=== PATIENT | male | born 1940 | race Caucasian/White ===

== ENCOUNTER 2018-04-02 13:41 | Observation (INO) | payer OTHER ==
[2018-04-02] VITALS (7 sets, daily range): BP systolic 130–167; BP diastolic 63–82; PULSE 50–64; RESP 18–20; TEMP 96.6–97.7; O2SAT 94–99
[~2018-04-02] VITALS: Ht 168.9 cm; Wt 75.0 kg
[2018-04-02 14:01] LABS: AUTOMATED NEUTROPHIL # 4.4 TH/MM3 (1.8-7.7); BASOPHIL % 0.4 % (0.0-2.0); EOSINOPHIL # 0.2 TH/MM3 (0-0.4); EOSINOPHIL % 2.6 % (0.0-4.0); HEMATOCRIT 40.3 % (39.0-51.0); HEMOGLOBIN 13.8 GM/DL (13.0-17.0); LYMPH % 40.2 % (9.0-44.0); LYMPHOCYTE # 3.9 TH/MM3 (1.0-4.8); MEAN CELL VOLUME 88.5 FL (80.0-100.0); MEAN CORPUSCULAR HEMOGLOBIN 30.4 PG (27.0-34.0); MEAN CORPUSCULAR HGB CONC 34.3 % (32.0-36.0); MONO % 11.3 % (0.0-8.0); MONOCYTE # 1.1 TH/MM3 (0-0.9); NEUT % 45.5 % (16.0-70.0); PLATELET COUNT 201 TH/MM3 (150-450); RED BLOOD COUNT 4.55 MIL/MM3 (4.50-5.90); RED CELL DISTRIBUTION WIDTH 13.6 % (11.6-17.2); WHITE BLOOD COUNT 9.6 TH/MM3 (4.0-11.0)
[2018-04-02 14:16] LABS: INTERNATIONAL NORMALIZED RATIO 1.1 RATIO; PROTHROMBIN TIME - PATIENT 10.7 SEC (9.8-11.6)
[2018-04-02 14:20] LABS: ALBUMIN 4.1 GM/DL (3.4-5.0); ALT (GPT) 30 U/L (12-78); AST (GOT) 23 U/L (15-37); BICARBONATE 22.5 MEQ/L (21.0-32.0); BLOOD UREA NITROGEN 41 MG/DL (7-18); CALCIUM 8.9 MG/DL (8.5-10.1); CHLORIDE 109 MEQ/L (98-107); CREATININE 1.92 MG/DL (0.60-1.30); GLOMERULAR FILTRATION RATE 34 ML/MIN (>89); GLUCOSE,RANDOM 101 MG/DL (74-106); MAGNESIUM 2.3 MG/DL (1.5-2.5); SODIUM (NA) 141 MEQ/L (136-145)
[2018-04-02 14:24] LABS: ALKALINE PHOSPHATASE 106 U/L (45-117); TOTAL BILIRUBIN ADULT 0.5 MG/DL (0.2-1.0); TOTAL PROTEIN 7.6 GM/DL (6.4-8.2); TROPONIN I LESS THAN 0.02 NG/ML (0.02-0.05)
--- NOTE | 2018-04-02 14:39 | PD ---
HPI Chief Complaint: Cardiac Complaint Time Seen by Provider: 13:44 Travel History International Travel<30 days: No Contact w/Intl Traveler<30days: No Traveled to known affect area: No History of Present Illness HPI 78-year-old male had a syncopal event and his family called an ambulance to come and get him. When they arrived on scene he had no complaints other than generalized weakness. While they are preparing to come up to the monitor he had another syncopal event but they do not know what his rhythm was at the time. They state in route they thought that he was in atrial fibrillation with his rhythm strip appears to be sinus rhythm. Patient has no active chest pain or shortness of breath at this time. Patient does not recall syncopal event and history is limited. PFSH Past Medical History Atrial Fibrillation: Yes Cardiac Catheterization: Yes (STENTS) Cardiovascular Problems: Yes Diabetes: Yes Patient Takes Glucophage: Yes Hypertension: Yes Past Surgical History Other Surgery: Yes (STENTS IN LEG) Social History Alcohol Use: No Tobacco Use: No Substance Use: No Allergies-Medications (Allergen,Severity, Reaction): Coded Allergies: iodine (Verified Allergy, Unknown, 04/02/18) Review of Systems Except as stated in HPI: all other systems reviewed are Neg Physical Exam Narrative GENERAL: 78 y/o male in no apparent distress SKIN: Focused skin assessment warm/dry. HEAD: Atraumatic. Normocephalic. EYES: Pupils equal and round. No scleral icterus. No injection or drainage. ENT: No nasal bleeding or discharge. Mucous membranes pink and moist. NECK: Trachea midline. CARDIOVASCULAR: Regular rate and rhythm. RESPIRATORY: No accessory muscle use. Clear to auscultation. Breath sounds equal bilaterally. GASTROINTESTINAL: Abdomen soft, non-tender, nondistended. MUSCULOSKELETAL: No obvious deformities. No clubbing. No cyanosis. NEUROLOGICAL: Awake and alert. No obvious cranial nerve deficits. Motor grossly within normal limits. Normal speech. PSYCHIATRIC: Appropriate mood and affect; insight and judgment normal. Data Data Last Documented VS Vital Signs Date Time Temp Pulse Resp B/P (MAP) Pulse Ox O2 Delivery O2 Flow Rate FiO2 04/02/18 14:32 60 20 142/63 (89) 94 Nasal Cannula 2.00 04/02/18 13:42 97.7 Orders Orders Electrocardiogram (04/02/18 13:45) Complete Blood Count With Diff (04/02/18 13:45) Comprehensive Metabolic Panel (04/02/18 13:45) Magnesium (Mg) (04/02/18 13:45) B-Type Natriuretic Peptide (04/02/18 13:45) Ckmb (Isoenzyme) Profile (04/02/18 13:45) Troponin I (04/02/18 13:45) Act Partial Throm Time (Ptt) (04/02/18 13:45) Prothrombin Time / Inr (Pt) (04/02/18 13:45) Chest, Single Ap (04/02/18 13:45) Ecg Monitoring (04/02/18 13:45) Iv Access Insert/Monitor (04/02/18 13:45) Oximetry (04/02/18 13:45) Sodium Chlorid 0.9% 500 Ml Inj (Ns 500 M (04/02/18 14:45) Admit Order (Ed Use Only) (04/02/18 15:17) Place In Observation (04/02/18 ) Vital Signs (Adult) Q4H (04/02/18 15:16) Activity Oob Ad Nhung (04/02/18 15:16) Utilization Supervisor / Telemetry SONI.Q8H (04/02/18 15:16) Diet Heart Healthy (04/02/18 Dinner) Sodium Chloride 0.9% Flush (Ns Flush) (04/02/18 15:30) Sodium Chloride 0.9% Flush (Ns Flush) (04/02/18 21:00) Basic Metabolic Panel (Bmp) (04/03/18 06:00) Echo 2d Comp With Doppler (04/02/18 ) Us Carotid Arteries Comp Bilat (04/02/18 ) Orthostatic Blood Pressure (04/02/18 15:16) Troponin I (04/02/18 19:00) Labs Laboratory Tests Test 04/02/18 13:50 White Blood Count 9.6 TH/MM3 Red Blood Count 4.55 MIL/MM3 Hemoglobin 13.8 GM/DL Hematocrit 40.3 % Mean Corpuscular Volume 88.5 FL Mean Corpuscular Hemoglobin 30.4 PG Mean Corpuscular Hemoglobin Concent 34.3 % Red Cell Distribution Width 13.6 % Platelet Count 201 TH/MM3 Mean Platelet Volume 9.0 FL Neutrophils (%) (Auto) 45.5 % Lymphocytes (%) (Auto) 40.2 % Monocytes (%) (Auto) 11.3 % Eosinophils (%) (Auto) 2.6 % Basophils (%) (Auto) 0.4 % Neutrophils # (Auto) 4.4 TH/MM3 Lymphocytes # (Auto) 3.9 TH/MM3 Monocytes # (Auto) 1.1 TH/MM3 Eosinophils # (Auto) 0.2 TH/MM3 Basophils # (Auto) 0.0 TH/MM3 CBC Comment DIFF FINAL Differential Comment Prothrombin Time 10.7 SEC Prothromb Time International Ratio 1.1 RATIO Activated Partial Thromboplast Time 21.0 SEC Blood Urea Nitrogen 41 MG/DL Creatinine 1.92 MG/DL Random Glucose 101 MG/DL Total Protein 7.6 GM/DL Albumin 4.1 GM/DL Calcium Level 8.9 MG/DL Magnesium Level 2.3 MG/DL Alkaline Phosphatase 106 U/L Aspartate Amino Transf (AST/SGOT) 23 U/L Alanine Aminotransferase (ALT/SGPT) 30 U/L Total Bilirubin 0.5 MG/DL Sodium Level 141 MEQ/L Potassium Level 4.0 MEQ/L Chloride Level 109 MEQ/L Carbon Dioxide Level 22.5 MEQ/L Anion Gap 10 MEQ/L Estimat Glomerular Filtration Rate 34 ML/MIN Total Creatine Kinase 60 U/L Troponin I LESS THAN 0.02 NG/ML B-Type Natriuretic Peptide 143 PG/ML MDM Medical Decision Making Medical Screen Exam Complete: Yes Emergency Medical Condition: Yes Medical Record Reviewed: Yes (pmh confirmed) Interpretation(s) CBC & BMP Diagram 04/02/18 13:50 Total Protein 7.6, Albumin 4.1, Calcium Level 8.9, Magnesium Level 2.3, Alkaline Phosphatase 106, Aspartate Amino Transf (AST/SGOT) 23, Alanine Aminotransferase (ALT/SGPT) 30, Total Bilirubin 0.5 Last 24 hours Impressions Chest X-Ray 04/02/18 1345 Signed Impressions: CONCLUSION: No acute cardiopulmonary abnormality is identified. Differential Diagnosis Anemia, cardiac, electrolyte Narrative Course We will check blood work, imaging and reevaluate Labs with renal insufficiency without prior for comparison. Given significant past medical history and setting of syncope will admit for observation for further care Physician Communication Physician Communication dr parada agrees not stemi dr espana agrees to admit Diagnosis Primary Impression: Syncope Qualified Codes: R55 - Syncope and collapse Additional Impression: Renal insufficiency Admitting Information Admitting Physician Requests: Observation Hird,Ludivina May MD Apr 02, 2018 14:39
--- NOTE | 2018-04-02 14:42 | RADRPT ---
EXAM DATE: 04/02/2018 2:25 PM EDT AGE/SEX: 78 years / Male INDICATIONS: Short of breath. CLINICAL DATA: This is the patient's initial encounter. Patient reports that signs and symptoms have been present for 1 day and indicates a pain score of 0/10. MEDICAL/SURGICAL HISTORY: None. None. COMPARISON: [facility], XR CHEST PA AND LAT, 08/20/2015. . FINDINGS: Portable AP views of the chest demonstrate a normal-sized cardiac silhouette. EKG lines overlie the p atient. Linear opacity overlying the right lower lung zone is stable and likely represents a bronchov ascular structure. No effusion, consolidation, or pneumothorax is visualized. Bones and soft tissues demonstrate no acute finding. CONCLUSION: No acute cardiopulmonary abnormality is identified. Electronically signed by: Tony Mathews MD 04/02/2018 2:41 PM EDT
[2018-04-02] MEDS ORDERED: SODIUM CHLORID 0.9% 500 ML INJ 500 ML IV ONE (14:45)
[2018-04-02] MEDS ORDERED: IODIXANOL 320 MG/ML 10 ML VIAL (for Rad CT) IVCONTRAST ONE (15:20)
[2018-04-02] MEDS ORDERED: SODIUM CHLORIDE 0.9% FLUSH 10 ML FLUSH IV FLUSH PRN (15:30)
--- NOTE | 2018-04-02 16:06 | HHI.HP ---
[facility] [place] [facility] Primary Care Physician Unknown Admission Diagnosis syncope Diagnoses: Chief Complaint: I do not know what happened Travel History International Travel<30 Days: No Contact w/Intl Traveler <30 Da: No Traveled to Known Affected Are: No History of Present Illness 78-year-old white male with a history of coronary artery disease, peripheral vascular disease, hypertension, diabetes mellitus type 2, chronic kidney disease stage III, valvular heart disease is down in this area visiting from [place] when he returned walking on the beach and felt extremely hot sitting down in a chair and had a witnessed passing out spell by his family members. They described the syncope episode lasting about a minute and period of confusion afterwards which lasted about 10 minutes. He had a similar shortly afterwards repeat syncope episode blood sugar at that time per family member was 97. And therefore EVAC was called. He did eat breakfast and drank water and was pretty well hydrated this morning. He states that this has never happened previously. He does see a scrap wheeler and states that he is due for office visit in June and a repeat echo in May. He states that he does have a valvular heart disease and thinks it may be due to his aortic valve. His at bedside states that his physician did state that he may need future open heart surgery for the valve repair. Review of Systems Constitutional: COMPLAINS OF: Diaphoretic episodes, DENIES: Fatigue, Fever, Chills, Dizziness, Change in appetite Endocrine: DENIES: Heat/cold intolerance Eyes: DENIES: Blurred vision, Eye pain, Vision loss Ears, nose, mouth, throat: DENIES: Hearing loss, Nasal discharge, Throat pain, Ear Pain, Sinus Pain Respiratory: DENIES: Cough, Shortness of breath Cardiovascular: DENIES: Chest pain, Palpitations, Dyspnea on Exertion, Lower Extremity Edema Gastrointestinal: DENIES: Abdominal pain, Black stools, Bloody stools, Constipation, Diarrhea, Nausea, Vomiting Musculoskeletal: DENIES: Joint pain, Muscle aches, Stiffness Integumentary: DENIES: Rash Hematologic/lymphatic: DENIES: Bruising, Lymphadenopathy Immunologic/allergic: DENIES: Eczema Neurologic: DENIES: Headache, Localized weakness, Paresthesias Psychiatric: DENIES: Anxiety, Depression, Suicidal Ideation Past Family Social History Past Medical History CAD PVD Hyperlipidemia Diabetes mellitus type 2 Valvular heart disease Chronic kidney disease stage III Hypertension Past Surgical History Stent placement heart and bilateral lower extremity Reported Medications Atorvastatin 80 mg p.o. nightly Metoprolol 25 mg p.o. nightly Plavix 75 mg p.o. daily Amlodipine 10 mg p.o. daily Glipizide 10 mg p.o. daily Allergies: Coded Allergies: iodine (Verified Allergy, Unknown, Swelling, 04/04/18) PATIENT STATES THAT FACE WAS SWOLLEN BUT NO DIFFICULTY BREATHING. IS ABLE TO EAT SHELLFISH WITHOUT PROBLEM. 04/04/18 DJP Family History Grandmother had heart disease Social History Does not smoke cigarettes or drink alcohol Physical Exam Vital Signs Vital Signs Date Time Temp Pulse Resp B/P (MAP) Pulse Ox O2 Delivery O2 Flow Rate FiO2 04/02/18 14:32 60 20 142/63 (89) 94 Nasal Cannula 2.00 04/02/18 13:49 59 20 96 Room Air 04/02/18 13:49 99 Room Air 04/02/18 13:42 97.7 64 20 159/67 (97) 95 Physical Exam GENERAL: This is a well-nourished, well-developed patient, in no apparent distress. SKIN: No rashes, ecchymoses or lesions. Cool and dry. HEAD: Atraumatic. Normocephalic. No temporal or scalp tenderness. EYES: Pupils equal round and reactive. Extraocular motions intact. No scleral icterus. No injection or drainage. ENT: Nose without bleeding, purulent drainage or septal hematoma. NECK: Trachea midline. No JVD or lymphadenopathy. Supple, nontender, no meningeal signs. CARDIOVASCULAR: Regular rate and rhythm with 2 out of 6 systolic ejection murmur RESPIRATORY: Clear to auscultation. Breath sounds equal bilaterally. No wheezes , rales, or rhonchi. GASTROINTESTINAL: Abdomen soft, non-tender, nondistended. No hepato-splenomegaly , or palpable masses. No guarding. Normoactive bowel sounds MUSCULOSKELETAL: Extremities without clubbing, cyanosis, or edema. NEUROLOGICAL: Awake and alert to person place time and situation. Cranial nerves II through XII intact. Motor and sensory grossly within normal limits. Five out of 5 muscle strength in all muscle groups. Normal speech. Laboratory Laboratory Tests Test 04/02/18 13:50 White Blood Count 9.6 Red Blood Count 4.55 Hemoglobin 13.8 Hematocrit 40.3 Mean Corpuscular Volume 88.5 Mean Corpuscular Hemoglobin 30.4 Mean Corpuscular Hemoglobin Concent 34.3 Red Cell Distribution Width 13.6 Platelet Count 201 Mean Platelet Volume 9.0 Neutrophils (%) (Auto) 45.5 Lymphocytes (%) (Auto) 40.2 Monocytes (%) (Auto) 11.3 Eosinophils (%) (Auto) 2.6 Basophils (%) (Auto) 0.4 Neutrophils # (Auto) 4.4 Lymphocytes # (Auto) 3.9 Monocytes # (Auto) 1.1 Eosinophils # (Auto) 0.2 Basophils # (Auto) 0.0 CBC Comment DIFF FINAL Differential Comment Prothrombin Time 10.7 Prothromb Time International Ratio 1.1 Activated Partial Thromboplast Time 21.0 Blood Urea Nitrogen 41 Creatinine 1.92 Random Glucose 101 Total Protein 7.6 Albumin 4.1 Calcium Level 8.9 Magnesium Level 2.3 Alkaline Phosphatase 106 Aspartate Amino Transf (AST/SGOT) 23 Alanine Aminotransferase (ALT/SGPT) 30 Total Bilirubin 0.5 Sodium Level 141 Potassium Level 4.0 Chloride Level 109 Carbon Dioxide Level 22.5 Anion Gap 10 Estimat Glomerular Filtration Rate 34 Total Creatine Kinase 60 Troponin I LESS THAN 0.02 B-Type Natriuretic Peptide 143 Result Diagram: 04/02/18 1350 04/02/18 1350 Imaging Last Impressions Chest X-Ray 04/02/18 1345 Signed Impressions: CONCLUSION: No acute cardiopulmonary abnormality is identified. Caprini VTE Risk Assessment Caprini VTE Risk Assessment: Mod/High Risk (score >= 2) Caprini Risk Assessment Model Point Value = 1 Point Value = 2 Point Value = 3 Point Value = 5 Age 41-60 Minor surgery BMI > 25 kg/m2 Swollen legs Varicose veins or History of unexplained or recurrent spontaneous Oral contraceptives or hormone replacement Sepsis (< 1 month) Serious lung disease, including pneumonia (< 1 month) Abnormal pulmonary function Acute myocardial infarction Congestive heart failure (< 1 month) History of inflammatory bowel disease Medical patient at bed rest Age 61-74 Arthroscopic surgery Major open surgery (> 45 min) Laparoscopic surgery (> 45 min) Malignancy Confined to bed (> 72 hours) Immobilizing plaster cast Central venous access Age >= 75 History of VTE Family history of VTE Factor V Leiden Prothrombin [id number] Lupus anticoagulant Anticardiolipin antibodies Elevated serum homocysteine Heparin-induced thrombocytopenia Other congenital or acquired thrombophilia Stroke (< 1 month) Elective arthroplasty Hip, pelvis, or leg fracture Acute spinal cord injury (< 1 month) Prophylaxis Regimen Total Risk Factor Score Risk Level Prophylaxis Regimen 0-1 Low Early ambulation 2 Moderate Order ONE of the following: *Sequential Compression Device (SCD) *Heparin 5000 units SQ BID 3-4 Higher Order ONE of the following medications: *Heparin 5000 units SQ TID *Enoxaparin/Lovenox 40 mg SQ daily (WT < 150 kg, CrCl > 30 mL/min) *Enoxaparin/Lovenox 30 mg SQ daily (WT < 150 kg, CrCl > 10-29 mL/min) *Enoxaparin/Lovenox 30 mg SQ BID (WT < 150 kg, CrCl > 30 mL/min) AND/OR *Sequential Compression Device (SCD) 5 or more Highest Order ONE of the following medications: *Heparin 5000 units SQ TID (Preferred with Epidurals) *Enoxaparin/Lovenox 40 mg SQ daily (WT < 150 kg, CrCl > 30 mL/min) *Enoxaparin/Lovenox 30 mg SQ daily (WT < 150 kg, CrCl > 10-29 mL/min) *Enoxaparin/Lovenox 30 mg SQ BID (WT < 150 kg, CrCl > 30 mL/min) AND *Sequential Compression Device (SCD) Assessment and Plan Problem List: (1) Syncope ICD Code: R55 - Syncope and collapse Status: Acute (2) Valvular heart disease ICD Code: I38 - Endocarditis, valve unspecified Status: Chronic (3) Diabetes mellitus type 2, controlled ICD Code: E11.9 - Type 2 diabetes mellitus without complications Status: Chronic (4) CKD (chronic kidney disease), stage III ICD Code: N18.3 - Chronic kidney disease, stage 3 (moderate) Status: Chronic Assessment and Plan 78-year-old white male with a history of coronary disease, valvular heart disease here vacationing from [place] presents with 1. Syncope -place patient observation. Patient does have history of valvular heart disease and suspect aortic stenosis - obtain 2D echo for further evaluation and place on telemetry to rule out any underlying arrhythmia. Check orthostatic blood pressure. We will also obtain a carotid ultrasound due to patient's history of peripheral vascular disease and coronary artery disease. Patient states that he would prefer to follow-up with his own scrap wheeler in [place] and declined a cardiology consultation here. 2. Coronary artery disease resume Plavix 3. Hypertension, chronic essential resume home amlodipine 4. Chronic kidney disease stage III -avoid nephrotoxins 5. Diabetes mellitus type 2 - monitor blood sugars, initiate sliding scale scale. Resume glipizide 6. DVT prophylaxis-heparin Problem Qualifiers (1) Syncope: Qualified Codes: R55 - Syncope and collapse (2) Diabetes mellitus type 2, controlled: Lora Hernandez MD Apr 02, 2018 16:06
[2018-04-02] MEDS: METOPROLOL TARTRATE 25 MG TAB PO SCH (21:00)
--- NOTE | 2018-04-02 21:11 | RADRPT ---
EXAM DATE: 04/02/2018 9:05 PM EDT AGE/SEX: 78 years / Male INDICATIONS: Syncope. CLINICAL DATA: This is the patient's initial encounter. Patient reports that signs and symptoms have been present for 1 day and indicates a pain score of 0/10. MEDICAL/SURGICAL HISTORY: Hypertension. Diabetes. AFib. Coronary artery stent. Cardiac cath. Stents in leg. COMPARISON: No prior [facility] exams available for comparison. No external comparison. VELOCITY PARAMETERS: ICA/CCA Ratio: Right 1.52 , Left 2.01 ICA: Right 128 cm/sec, Left 169 cm/sec CCA: Right 84 cm/sec, Left 84 cm/sec ECA: Right 170 cm/sec, Left 127 cm/sec Vertebral: Right 57 cm/sec antegrade, Left 50 cm/sec antegrade FINDINGS: There is mild elevated velocity on the right without evidence for hemodynamically significant stenosi s. On the left, the velocity and ratio are elevated corresponding to an estimated 50-69% stenosis. Th ere is antegrade flow in the bilateral vertebral arteries. There is mild atherosclerotic plaquing ashleigh aterally. CONCLUSION: 1. Right Internal Carotid Artery: No evidence for hemodynamically significant stenosis. 2. Left Internal Carotid Artery: No evidence for hemodynamically significant stenosis. See above. Electronically signed by: Romaine Fuentes MD 04/02/2018 9:10 PM EDT
[2018-04-02] MEDS: HEPARIN SODIUM - SQ 10,000 UNITS/ML VIAL SQ SCH (22:09)
[2018-04-02] MEDS: ATORVASTATIN 80 MG TAB PO SCH (22:09)
[2018-04-02] MEDS: SODIUM CHLORIDE 0.9% FLUSH 10 ML FLUSH IV FLUSH SCH (22:10)
[2018-04-03] VITALS (10 sets, daily range): BP systolic 130–158; BP diastolic 59–79; PULSE 51–70; RESP 18–20; TEMP 97.7–98.4; O2SAT 94–98
[2018-04-03] MEDS: glipiZIDE 10 MG TAB PO SCH (09:11)
[2018-04-03] MEDS: SODIUM CHLORIDE 0.9% FLUSH 10 ML FLUSH IV FLUSH SCH ×2 (09:11→22:40)
[2018-04-03] MEDS: CLOPIDOGREL 75 MG TAB PO SCH (09:11)
[2018-04-03 09:13] LABS: BICARBONATE 23.3 MEQ/L (21.0-32.0); CALCIUM 9.2 MG/DL (8.5-10.1); CREATININE 1.56 MG/DL (0.60-1.30)
[2018-04-03] MEDS: HEPARIN SODIUM - SQ 10,000 UNITS/ML VIAL SQ SCH ×2 (09:18→22:41)
--- NOTE | 2018-04-03 13:26 | ECHRPT ---
Indication: Syncope and collapse CONCLUSIONS Normal left ventricular size and wall thickness. The left ventricular systolic function is normal with an estimated ejection fraction in the range of 60-65%. Left ventricular diastolic function parameters are normal. Mild mitral valve regurgitation. Trace aortic valve regurgitation. Moderate aortic valve stenosis. BP: 130 / 62 HR: 66 Rhythm: Sinus MEASUREMENTS (Male / Female) Normal Values Technical Quality:Fair 2D ECHO LV Diastolic Diameter PLAX 4.5 cm 4.2 - 5.9 / 3.9 - 5.3 cm LV Systolic Diameter PLAX 3.4 cm IVS Diastolic Thickness 1.0 cm 0.6 - 1.0 / 0.6 - 0.9 cm LVPW Diastolic Thickness 1.0 cm 0.6 - 1.0 / 0.6 - 0.9 cm LV Relative Wall Thickness 0.5 LVOT Diameter 2.3 cm M-MODE Aortic Root Diameter MM 3.2 cm LA Systolic Diameter MM 2.9 cm LA Ao Ratio MM 0.9 AV Cusp Separation MM 1.9 cm DOPPLER AV Peak Velocity 296.7 cm/s AV Peak Gradient 35.2 mmHg AV Mean Gradient 23.7 mmHg AV Velocity Time Integral 76.8 cm AI Peak Velocity 210.0 cm/s AI Peak Gradient 17.6 mmHg AI Pressure Half Time 733.0 ms LVOT Peak Velocity 85.8 cm/s LVOT Peak Gradient 2.9 mmHg AV Area Cont Eq pk 1.2 cm MR Peak Velocity 360.0 cm/s MR Peak Gradient 51.8 mmHg Mitral E Point Velocity 95.0 cm/s Mitral A Point Velocity 111.0 cm/s Mitral E to A Ratio 0.9 LV E' Lateral Velocity 6.1 cm/s Mitral E to LV E' Lateral Ratio 15.5 LV E' Septal Velocity 3.7 cm/s Mitral E to LV E' Septal Ratio 25.7 PV Peak Velocity 113.0 cm/s PV Peak Gradient 5.1 mmHg FINDINGS LEFT VENTRICLE Normal left ventricular size and wall thickness. The left ventricular systolic function is normal wi th an estimated ejection fraction in the range of 60-65%. Left ventricular diastolic function parameters a re normal. RIGHT VENTRICLE Normal right ventricular size and systolic function. LEFT ATRIUM The left atrial size is normal. RIGHT ATRIUM The right atrial size is normal. ATRIAL SEPTUM Normal atrial septal thickness without atrial level shunting by limited color doppler interrogation. AORTA The aortic root and proximal ascending aorta are normal in size on limited imaging. MITRAL VALVE Mild mitral valve regurgitation. AORTIC VALVE Trace aortic valve regurgitation. Moderate aortic valve stenosis. Aortic valve area is 1.2cm. TRICUSPID VALVE Structurally normal tricuspid valve. No tricuspid valve stenosis or regurgitation. PULMONARY VALVE The pulmonary valve is not well visualized. VESSELS The inferior vena cava is normal in size. PERICARDIUM No pericardial effusion. Jamil Red MD, FACC (Electronically Signed) Final Date:03 April 2018 13:25
--- NOTE | 2018-04-03 14:19 | HHI.PR ---
Subjective Remarks Follow-up syncopal episode. Patient has no complaints at this time. Denies lightheadedness, dizziness, chest pain, dyspnea. States that he wants to go home and follow-up with his music journalist. Objective Vitals Vital Signs Date Time Temp Pulse Resp B/P (MAP) Pulse Ox O2 Delivery O2 Flow Rate FiO2 04/03/18 11:21 98.1 66 20 130/62 (84) 95 04/03/18 08:30 57 04/03/18 07:52 98.4 60 18 144/65 (91) 98 04/03/18 04:00 97.8 65 20 137/64 (88) 95 04/03/18 03:53 62 04/03/18 00:00 98.2 60 20 139/59 (85) 94 04/02/18 20:10 50 04/02/18 20:00 130/65 (86) 158/80 (106) 04/02/18 20:00 97.4 54 20 140/65 (90) 96 04/02/18 17:00 96.6 62 20 153/68 (96) 96 04/02/18 16:14 04/02/18 15:48 57 18 153/77 (102) 79 18 167/82 (110) 04/02/18 14:32 60 20 142/63 (89) 94 Nasal Cannula 2.00 I/O 04/02/18 04/02/18 04/02/18 04/03/18 04/03/18 04/03/18 07:00 15:00 23:00 07:00 15:00 23:00 Intake Total 620 ml Balance 620 ml Intake Oral 620 ml # Voids 3 Result Diagram: 04/02/18 1350 04/03/18 0709 Imaging Last Impressions Chest X-Ray 04/02/18 1345 Signed Impressions: CONCLUSION: No acute cardiopulmonary abnormality is identified. Carotid Artery Ultrasound 04/02/18 0000 Signed Impressions: There is mild elevated velocity on the right without evidence for hemodynamical ly significant stenosis. On the left, the velocity and ratio are elevated corre sponding to an estimated 50-69% stenosis. There is antegrade flow in the bilate ral vertebral arteries. There is mild atherosclerotic plaquing bilaterally. CON CLUSION: 1. Right Internal Carotid Artery: No evidence for hemodynamically significant stenosis. 2. Left Internal Carotid Artery: No evidence for hemodynamically significant s tenosis. See above. Objective Remarks General: No acute distress. Heart: Regular rate and rhythm. 2/6 systolic murmur. Lungs: Clear to auscultation bilaterally. No wheezes, rales, or rhonchi. Breathing is nonlabored. Abdomen: Soft, nontender, nondistended. Extremities: No lower extremity edema. Psych: Alert and oriented. Neuro: Normal speech. No focal deficits noted. Procedures None Urinary Catheter: No Vascular Central Line Catheter: No A/P Problem List: (1) Syncope ICD Code: R55 - Syncope and collapse Status: Acute (2) Valvular heart disease ICD Code: I38 - Endocarditis, valve unspecified Status: Chronic (3) Diabetes mellitus type 2, controlled ICD Code: E11.9 - Type 2 diabetes mellitus without complications Status: Chronic (4) CKD (chronic kidney disease), stage III ICD Code: N18.3 - Chronic kidney disease, stage 3 (moderate) Status: Chronic Assessment and Plan 1. Syncope: Patient has aortic stenosis, which is confirmed by echocardiogram. Patient's symptoms have resolved. He has not had any further episodes since arriving at the hospital. He wants to go home and follow-up with his music journalist in [place]. He has declined cardiology consultation here. Due to confusion following this episode, will check head CT. 2. Coronary artery disease: Continue Plavix. No chest pain. 3. Hypertension: Continue amlodipine. 4. Acute kidney injury superimposed on chronic kidney disease stage III: Creatinine improving. Avoid nephrotoxins. 5. Diabetes mellitus: Continue glipizide. Monitor Accu-Cheks and cover with sliding scale insulin. 6. DVT prophylaxis: Heparin. 7. Carotid artery stenosis: Carotid artery ultrasound shows 50-69% stenosis. Will consult vascular surgery. Discharge Planning Pending further workup and clearance by vascular surgery. Problem Qualifiers (1) Syncope: Qualified Codes: R55 - Syncope and collapse (2) Diabetes mellitus type 2, controlled: Trino Dye MD Apr 03, 2018 14:19
--- NOTE | 2018-04-03 16:36 | PD.CAR.PN ---
CVT Progress Note Subjective/Hospital Course: Referral received Full consult to ivan Gonzalez Objective: Vital Signs Date Time Temp Pulse Resp B/P (MAP) Pulse Ox O2 Delivery O2 Flow Rate FiO2 04/03/18 11:21 98.1 66 20 130/62 (84) 95 04/03/18 08:30 57 04/03/18 07:52 98.4 60 18 144/65 (91) 98 04/03/18 04:00 97.8 65 20 137/64 (88) 95 04/03/18 03:53 62 04/03/18 00:00 98.2 60 20 139/59 (85) 94 04/02/18 20:10 50 04/02/18 20:00 130/65 (86) 158/80 (106) 04/02/18 20:00 97.4 54 20 140/65 (90) 96 04/02/18 17:00 96.6 62 20 153/68 (96) 96 Labs: Laboratory Tests Test 04/03/18 07:09 Blood Urea Nitrogen 30 MG/DL (7-18) Creatinine 1.56 MG/DL (0.60-1.30) Random Glucose 134 MG/DL (74-106) Calcium Level 9.2 MG/DL (8.5-10.1) Sodium Level 141 MEQ/L (136-145) Potassium Level 4.0 MEQ/L (3.5-5.1) Chloride Level 107 MEQ/L (98-107) Carbon Dioxide Level 23.3 MEQ/L (21.0-32.0) Anion Gap 11 MEQ/L (5-15) Estimat Glomerular Filtration Rate 43 ML/MIN (>89) Result Diagram: 04/02/18 1350 04/03/18 0709 Alannah Love MD Apr 03, 2018 16:36
--- NOTE | 2018-04-03 17:37 | RADRPT ---
EXAM DATE: 04/03/2018 5:29 PM EDT AGE/SEX: 78 years / Male INDICATIONS: Altered mental status. CLINICAL DATA: This is the patient's initial encounter. Patient reports that signs and symptoms have been present for 1 day and indicates a pain score of 0/10. MEDICAL/SURGICAL HISTORY: Cardiovascular disease. Hypertension. Carcinoma, prostatic. None. RADIATION DOSE: 34.55 CTDI (mGy) COMPARISON: No prior exams available for comparison. TECHNIQUE: CT of the head without contrast. Using automated exposure control and adjustment of the mA and/or kV according to patient size, radiation dose was kept as low as reasonably achievable to ob tain optimal diagnostic quality images. FINDINGS: There is no evidence for intracranial hemorrhage, mass effect, mass lesions, edema, or extra-axial fl uid collections. The visualized bony structures appear intact. The ventricles are normal size for t he patient's age. There are no signs of acute infarction for technique. CONCLUSION: Unremarkable study. Electronically signed by: Selene Tobin MD 04/03/2018 5:36 PM EDT
--- NOTE | 2018-04-03 19:26 | EKG ---
Date Performed: 04/02/2018 Time Performed: 12:46:58 PTAGE: 78 years EKG: Sinus rhythm WITH SINUS ARRHYTHMIA POSSIBLE LEFT ATRIAL ENLARGEMENT LEFT VENTRICULAR HYPERTROPHY AND ST-T CHANGE ABNORMAL ECG NO PREVIOUS TRACING DOCTOR: Jamil Red Interpretating Date/Time 04/03/2018 19:24:21
--- NOTE | 2018-04-03 20:19 | MB ---
cc: Alannah Love MD, Slobodan MD DATE: 04/03/2018 REASON FOR CONSULTATION: Left internal carotid artery stenosis by ultrasound, TIA with temporary aphasia, coronary artery disease, diabetes mellitus, chronic renal failure. HISTORY OF PRESENT ILLNESS: This 78-year-old gentleman who is a known vasculopath with various manifestations of vascular disease in the past, presents now with an episode of passing out yesterday after walking on the beach. Following the episode, patient was confused and then finally came to. He was admitted as a stroke alert, worked up, found on ultrasound to have a moderate degree of a left carotid stenosis. PAST MEDICAL HISTORY: Coronary artery disease, peripheral vascular disease, diabetes mellitus, hyperlipidemia, chronic renal failure and hypertension. PAST SURGICAL HISTORY: Coronary artery angioplasty and stent placement about 8 years ago, bilateral lower extremity stent placement by some business center attendant. I am not sure what symptomatology was needing that. MEDICATIONS: 1. Metoprolol. 2. Plavix. 3. Glipizide. 4. Amlodipine. 5. Atorvastatin ALLERGIES: THE PATENT STATES TO DYE ALTHOUGH OBVIOUSLY HAD DYE ADMINISTERED MANY TIMES WITH ABOVE PROCEDURES. SOCIAL HISTORY: Does not smoke or drink. PHYSICAL EXAMINATION: GENERAL: Reveals a pleasant 78-year-old gentleman. HEENT: Normocephalic. No trauma to the head. Pupils equal, reactive. Extraocular muscles intact. NECK: Supple. Bilateral carotid pulses. No bruits. CHEST: Clear, bilateral breath sounds. HEART: Regular rhythm. ABDOMEN: Soft, active bowel sounds. No rebound, no guarding, no masses. EXTREMITIES: Grossly within normal limits. The patient has weak femoral pulses, weak dopplerable popliteal pulses. Feet are warm. NEUROLOGIC: He is fully intact. Jannet coma scale is 15. He has no lateralization, no drooping, no aphasia or any other issues. Deep tendon reflexes are normal. IMPRESSION AND RECOMMENDATIONS: I reviewed laboratory and diagnostic procedures. Based on the history and clinical presentation, this patient clearly had a transient ischemic attack. Ultrasound shows about 60% left internal carotid artery stenosis, but no hemodynamic compromise. Only about 30% of transient ischemia attacks are due to the vascular disease of the carotids. The remaining 70% are due either to sudden arrhythmia with supraventricular issues like atrial fibrillation or atrial flutter, and then small vessel disease of the brain accounting for the rest. At this point, based on the ultrasound, the patient does need a CTA of the carotids. His renal function is marginal and I will hydrate the patient prior to doing this. After discussing all this with the patient, he is clearly in denial. Each time I mentioned a transient ischemic attack, the patient states that he thought it was something else. At this point, he would like to go back to [place]. However, he does not know any vascular surgeons there or does not know who he is going to do the workup. It is my expert medical opinion, that patient should have his workup done here at this institution at this time and, based on the workup, we can tailor further therapy. On the other hand, if the patient wants to leave it is up to him. I thank you much for referral. MD LEONOR Gracia/ , 07:58 PM , 08:18 PM
[2018-04-03] MEDS: METOPROLOL TARTRATE 25 MG TAB PO SCH (21:47)
[2018-04-03] MEDS: SODIUM CHLOR 0.9% 1000 ML INJ 1,000 ML IV SCH (22:40)
[2018-04-03] MEDS: ATORVASTATIN 80 MG TAB PO SCH (22:41)
[2018-04-04] VITALS (11 sets, daily range): BP systolic 130–162; BP diastolic 59–78; PULSE 57–82; RESP 16–20; TEMP 96.9–98.8; O2SAT 95–97
[2018-04-04] MEDS: glipiZIDE 10 MG TAB PO SCH (08:35)
[2018-04-04] MEDS: SODIUM CHLOR 0.9% 1000 ML INJ 1,000 ML IV SCH ×2 (08:35→18:23)
[2018-04-04] MEDS: CLOPIDOGREL 75 MG TAB PO SCH (08:36)
[2018-04-04] MEDS: SODIUM CHLORIDE 0.9% FLUSH 10 ML FLUSH IV FLUSH SCH ×2 (08:36→20:38)
[2018-04-04] MEDS: HEPARIN SODIUM - SQ 10,000 UNITS/ML VIAL SQ SCH ×2 (08:36→20:38)
--- NOTE | 2018-04-04 12:46 | HHI.PR ---
Subjective Remarks Follow up TIA. Patient has no complaints at this time. Denies headache, vision changes, numbness/tingling/weakness, chest pain, dyspnea. He is willing to proceed with further workup here. Objective Vitals Vital Signs Date Time Temp Pulse Resp B/P (MAP) Pulse Ox O2 Delivery O2 Flow Rate FiO2 04/04/18 11:20 98.3 62 20 135/65 (88) 96 04/04/18 08:25 98.1 62 18 150/68 (95) 95 150/69 (96) 151/65 (93) 04/04/18 07:00 70 04/04/18 03:50 96.9 59 18 130/59 (82) 97 04/04/18 03:36 67 04/04/18 00:05 97.9 57 18 138/59 (85) 96 149/65 (93) 142/65 (90) 04/03/18 23:05 51 04/03/18 20:00 97.9 59 20 158/70 (99) 96 04/03/18 16:00 98.1 60 18 154/66 (95) 98 04/03/18 15:40 59 I/O 04/03/18 04/03/18 04/03/18 04/04/18 04/04/18 04/04/18 07:00 15:00 23:00 07:00 15:00 23:00 Intake Total 620 ml 480 ml 240 ml 950 ml Balance 620 ml 480 ml 240 ml 950 ml Intake Oral 620 ml 480 ml 240 ml IV Total 950 ml # Voids 3 10 2 # Bowel Movements 0 Result Diagram: 04/02/18 1350 04/03/18 0709 Imaging Last Impressions Head CT 04/03/18 0000 Signed Impressions: CONCLUSION: Unremarkable study. Chest X-Ray 04/02/18 1345 Signed Impressions: CONCLUSION: No acute cardiopulmonary abnormality is identified. Carotid Artery Ultrasound 04/02/18 0000 Signed Impressions: There is mild elevated velocity on the right without evidence for hemodynamical ly significant stenosis. On the left, the velocity and ratio are elevated corre sponding to an estimated 50-69% stenosis. There is antegrade flow in the bilate ral vertebral arteries. There is mild atherosclerotic plaquing bilaterally. CON CLUSION: 1. Right Internal Carotid Artery: No evidence for hemodynamically significant stenosis. 2. Left Internal Carotid Artery: No evidence for hemodynamically significant s tenosis. See above. Objective Remarks General: No acute distress. Heart: Regular rate and rhythm. 2/6 systolic murmur. Lungs: Clear to auscultation bilaterally. No wheezes, rales, or rhonchi. Breathing is nonlabored. Abdomen: Soft, nontender, nondistended. Extremities: No lower extremity edema. Psych: Alert and oriented. Neuro: Normal speech. No focal deficits noted. Procedures None Urinary Catheter: No Vascular Central Line Catheter: No A/P Problem List: (1) Syncope ICD Code: R55 - Syncope and collapse Status: Acute (2) Valvular heart disease ICD Code: I38 - Endocarditis, valve unspecified Status: Chronic (3) Diabetes mellitus type 2, controlled ICD Code: E11.9 - Type 2 diabetes mellitus without complications Status: Chronic (4) CKD (chronic kidney disease), stage III ICD Code: N18.3 - Chronic kidney disease, stage 3 (moderate) Status: Chronic (5) TIA (transient ischemic attack) ICD Code: G45.9 - Transient cerebral ischemic attack, unspecified Assessment and Plan 1. Syncope versus TIA: Patient has aortic stenosis, which is confirmed by echocardiogram. Patient's symptoms have resolved. He has not had any further episodes since arriving at the hospital. He has declined cardiology consultation here. Head CT is negative. Neurology consultation is pending. 2. Coronary artery disease: Continue Plavix. No chest pain. 3. Hypertension: Continue amlodipine. 4. Acute kidney injury superimposed on chronic kidney disease stage III: Creatinine improving. Avoid nephrotoxins. 5. Diabetes mellitus: Continue glipizide. Monitor Accu-Cheks and cover with sliding scale insulin. 6. DVT prophylaxis: Heparin. 7. Carotid artery stenosis: Carotid artery ultrasound shows 50-69% stenosis. Appreciate vascular surgery recommendations. The patient was initially resistant to further workup being done here, but is now agreeable. The patient needs CTA of the carotids. Awaiting labs to evaluate renal function prior to this test. Patient also has reported iodine allergy. Discharge Planning Pending further workup and clearance by vascular surgery, neurology. Problem Qualifiers (1) Syncope: Qualified Codes: R55 - Syncope and collapse (2) Diabetes mellitus type 2, controlled: Trino Dye MD Apr 04, 2018 12:46
[2018-04-04 12:56] LABS: BICARBONATE 26.9 MEQ/L (21.0-32.0); CALCIUM 8.6 MG/DL (8.5-10.1); CREATININE 1.39 MG/DL (0.60-1.30)
[2018-04-04] MEDS ORDERED: GLIP5TAB8 PO (16:03)
[2018-04-04] MEDS ORDERED: METO1TAB42 PO (16:03)
[2018-04-04] MEDS ORDERED: GLIP10TA6 PO (16:03)
[2018-04-04] MEDS ORDERED: AMLO10TA2 PO (16:03)
[2018-04-04] MEDS ORDERED: CLOP75TA PO (16:03)
[2018-04-04] MEDS ORDERED: LOSA100T3 PO (16:03)
[2018-04-04] MEDS ORDERED: ATOR80TA45 PO (16:03)
[2018-04-04] MEDS ORDERED: HYDR-3799 PO (16:03)
--- NOTE | 2018-04-04 16:29 | PD.CONS ---
History of Present Illness Service Neurology Consult Requested By Medical Reason for Consult TIA Primary Care Physician Unknown History of Present Illness 78-year-old male admitted for syncopal episode. He is on the beach with his came back to the room. Somewhat diaphoretic and lightheaded. And was fine discovered sitting appropriately with his spouse. Thereafter states his eyes rolled back slumped backward. No jerking. no bowel bladder incontinence. Call [facility] and he had another episode that was similar to that. states he is having some speech difficulties after coming out of the syncopal episode. Denies any chest pain dyspnea any visual loss or focal weakness. No history of TIA stroke or seizure. Vitals stable in the ER not orthostatic. CT brain scan no acute lesion. Review of Systems As above admission H&P Past Family Social History Past Medical History CAD PVD Hyperlipidemia Diabetes mellitus type 2 Valvular heart disease Chronic kidney disease stage III Hypertension Past Surgical History Stent placement heart and bilateral lower extremity Reported Medications Atorvastatin 80 mg p.o. nightly Metoprolol 25 mg p.o. nightly Plavix 75 mg p.o. daily Amlodipine 10 mg p.o. daily Glipizide 10 mg p.o. daily Allergies: Coded Allergies: iodine (Verified Allergy, Unknown, 04/02/18) Family History Grandmother had heart disease Social History Does not smoke cigarettes or drink alcohol Review of Systems All other ROS: ROS reviewed as documented in chart Past Family Social History Allergies: Coded Allergies: iodine (Verified Allergy, Unknown, Swelling, 04/04/18) PATIENT STATES THAT FACE WAS SWOLLEN BUT NO DIFFICULTY BREATHING. IS ABLE TO EAT SHELLFISH WITHOUT PROBLEM. 04/04/18 DJP Active Ordered Medications Current Medications Medications (Trade) Dose Ordered Sig/Bonilla Route Start Time Stop Time Status Last Admin (NS Flush) 2 ml UNSCH PRN IV FLUSH 04/02/18 15:30 (NS Flush) 2 ml BID IV FLUSH 04/02/18 21:00 04/03/18 22:40 (Heparin Inj) 5,000 units Q12HR SQ 04/02/18 21:00 04/04/18 08:36 (Norvasc) 10 mg DAILY PO 04/03/18 09:00 04/04/18 08:35 (Plavix) 75 mg DAILY PO 04/03/18 09:00 04/04/18 08:36 (Glucotrol) 10 mg DAILYAC PO 04/03/18 08:00 04/04/18 08:35 (Lipitor) 80 mg HS PO 04/02/18 21:00 04/03/18 22:41 (Lopressor) 25 mg HS PO 04/02/18 21:00 Sodium Chloride 1,000 ml @ 100 mls/hr Q10H IV 04/03/18 20:00 04/04/18 08:35 (Deltasone) 50 mg Q6H PO 04/04/18 20:00 04/05/18 08:01 (Benadryl) 50 mg ONCE ONCE PO 04/05/18 08:00 04/05/18 08:01 Exam I&O / VS 04/04/18 04/04/18 04/05/18 15:00 23:00 07:00 Intake Total 950 ml Balance 950 ml IV Total 950 ml Vital Signs Date Time Temp Pulse Resp B/P (MAP) Pulse Ox O2 Delivery O2 Flow Rate FiO2 04/04/18 15:20 98.4 63 20 162/72 (102) 96 04/04/18 11:20 98.3 62 20 135/65 (88) 96 04/04/18 08:25 98.1 62 18 150/68 (95) 95 150/69 (96) 151/65 (93) 04/04/18 07:00 70 04/04/18 03:50 96.9 59 18 130/59 (82) 97 04/04/18 03:36 67 04/04/18 00:05 97.9 57 18 138/59 (85) 96 149/65 (93) 142/65 (90) 04/03/18 23:05 51 04/03/18 20:00 97.9 59 20 158/70 (99) 96 General: Alert and Oriented Eye: EOMI Respiratory: Non-labored respirations Musculoskeletal: ROM Neurologic: Alert, Oriented, Normal sensory, Normal motor, No focal defects, CN II-XII intact, Gag reflex normal, Normal DTR's Psychiatric: Cooperative, Appropriate mood & affect, Normal judgement, Non- suicidal Review/Management Diagnosis/Plan: (1) Syncope ICD Codes: R55 - Syncope and collapse Status: Acute Plan: Recurrent syncopal episode after going to the beach preceded by symptoms of lightheadedness and mild diaphoresis Etiology would include heat syncope, vasovagal, orthostatic versus cardiac arrhythmia Increased creatinine and BUN ratio suggestive of dehydration Lesser likely to be a TIA. Carotid ultrasound demonstrates 50-69% stenosis. Recommendations EEG Consider cardiac evaluation; defer to medical Hydration Telemetry Follow exam (2) CKD (chronic kidney disease), stage III ICD Codes: N18.3 - Chronic kidney disease, stage 3 (moderate) Status: Chronic (3) Diabetes mellitus type 2, controlled ICD Codes: E11.9 - Type 2 diabetes mellitus without complications Status: Chronic (4) Valvular heart disease ICD Codes: I38 - Endocarditis, valve unspecified Status: Chronic (5) Renal insufficiency ICD Codes: N28.9 - Disorder of kidney and ureter, unspecified Status: Acute Problem Qualifiers (1) Syncope: Qualified Codes: R55 - Syncope and collapse (2) Diabetes mellitus type 2, controlled: Medhat Rodriguez MD Apr 04, 2018 16:29
--- NOTE | 2018-04-04 18:27 | PD.CAR.PN ---
CVT Progress Note Subjective/Hospital Course: Referral received Full consult to ivan Gonzalez 04/04/2018 As noted in my original consult this gentleman sustained a syncopal episode which could be anything from a TIA to way cardiac arrhythmia dehydration vasovagal reaction or anything of the sorts Ultrasound reveals about 50-70% left internal carotid artery stenosis i.e. in the moderate range CTA carotids pending Based on the outcome of the study will make further recommendations As noted only about 30% of TIAs/strokes are caused by carotid stenosis and the majority are either due to supraventricular arrhythmias or small vessel disease of the brain Patient apparently initially wanted to leave and now decided to stay for the workup in the hospital so we will continue to follow him with you Objective: Vital Signs Date Time Temp Pulse Resp B/P (MAP) Pulse Ox O2 Delivery O2 Flow Rate FiO2 04/04/18 16:47 82 04/04/18 15:20 98.4 63 20 162/72 (102) 96 04/04/18 11:20 98.3 62 20 135/65 (88) 96 04/04/18 08:25 98.1 62 18 150/68 (95) 95 150/69 (96) 151/65 (93) 04/04/18 07:00 70 04/04/18 03:50 96.9 59 18 130/59 (82) 97 04/04/18 03:36 67 04/04/18 00:05 97.9 57 18 138/59 (85) 96 149/65 (93) 142/65 (90) 04/03/18 23:05 51 04/03/18 20:00 97.9 59 20 158/70 (99) 96 Labs: Laboratory Tests Test 04/04/18 11:26 Blood Urea Nitrogen 24 MG/DL (7-18) Creatinine 1.39 MG/DL (0.60-1.30) Random Glucose 144 MG/DL (74-106) Calcium Level 8.6 MG/DL (8.5-10.1) Sodium Level 142 MEQ/L (136-145) Potassium Level 3.8 MEQ/L (3.5-5.1) Chloride Level 107 MEQ/L (98-107) Carbon Dioxide Level 26.9 MEQ/L (21.0-32.0) Anion Gap 8 MEQ/L (5-15) Estimat Glomerular Filtration Rate 50 ML/MIN (>89) Vitamin B12 Level 904 PG/ML (193-986) Thyroid Stimulating Hormone 3rd Gen 1.160 uIU/ML (0.358-3.740) Result Diagram: 04/02/18 1350 04/04/18 1126 Alannah Love MD Apr 04, 2018 18:27
[2018-04-04] MEDS: METOPROLOL TARTRATE 25 MG TAB PO SCH (20:37)
[2018-04-04] MEDS: hydrALAZINE HCL 25 MG TAB PO SCH (20:37)
[2018-04-04] MEDS: predniSONE 50 MG TAB PO SCH (20:37)
[2018-04-04] MEDS: ATORVASTATIN 80 MG TAB PO SCH (20:38)
[2018-04-05] VITALS (8 sets, daily range): BP systolic 148–169; BP diastolic 65–74; PULSE 54–84; RESP 17–20; TEMP 97.9–98.2; O2SAT 96–97
[2018-04-05] MEDS: predniSONE 50 MG TAB PO SCH ×2 (01:53→08:11)
[2018-04-05] MEDS: SODIUM CHLOR 0.9% 1000 ML INJ 1,000 ML IV SCH ×2 (04:26→15:34)
[2018-04-05] MEDS ORDERED: diphenhydrAMINE HCL 50 MG CAP PO ONE (08:00)
[2018-04-05] MEDS: glipiZIDE 10 MG TAB PO SCH (08:11)
[2018-04-05] MEDS: CLOPIDOGREL 75 MG TAB PO SCH (08:11)
[2018-04-05] MEDS: hydrALAZINE HCL 25 MG TAB PO SCH (08:12)
[2018-04-05] MEDS: HEPARIN SODIUM - SQ 10,000 UNITS/ML VIAL SQ SCH (08:12)
[2018-04-05] MEDS: SODIUM CHLORIDE 0.9% FLUSH 10 ML FLUSH IV FLUSH SCH (08:13)
[2018-04-05] MEDS ORDERED: IODIXANOL 320 MG/ML 10 ML VIAL (for Rad CT) IVCONTRAST ONE (09:50)
--- NOTE | 2018-04-05 11:24 | RADRPT ---
EXAM DATE: 04/05/2018 10:56 AM EDT AGE/SEX: 78 years / Male INDICATIONS: Syncopal episode, possible TIA. CLINICAL DATA: This is the patient's initial encounter. Patient reports that signs and symptoms have been present for 1 day and indicates a pain score of 0/10. MEDICAL/SURGICAL HISTORY: Cardiovascular disease. Hypertension. Diabetes mellitus type I. None. RADIATION DOSE: 9.39 CTDI (mGy) ; Combined studies COMPARISON: No prior exams available for comparison. TECHNIQUE: Volumetric scanning was performed using a multi-row detector CT scanner during bolus infu jewel of 50 ml Visipaque 320 (iodixanol) nonionic water-soluble contrast as a cumulative dose for mul tiple exams. The data was post processed with a variety of visualization algorithms including full volume maximum intensity projection, multi-planar sliding thin slab reformation, curved planar reform ation, and surface rendering techniques. Using automated exposure control and adjustment of the mA a nd/or kV according to patient size, radiation dose was kept as low as reasonably achievable to obtain optimal diagnostic quality images. FINDINGS: There is excellent visualization of the major intracranial arteries out to the second-order branch ve ssels. There is no evidence for aneurysm, vessel truncation or stenosis, and no evidence for vascula r malformation. CONCLUSION: 1. Negative CTA Head. Electronically signed by: Blaine Ritter MD 04/05/2018 11:23 AM EDT
--- NOTE | 2018-04-05 11:41 | RADRPT ---
EXAM DATE: 04/05/2018 11:23 AM EDT AGE/SEX: 78 years / Male INDICATIONS: Syncopal episode, possible TIA. CLINICAL DATA: This is the patient's initial encounter. Patient reports that signs and symptoms have been present for 1 day and indicates a pain score of 0/10. MEDICAL/SURGICAL HISTORY: Cardiovascular disease. Hypertension. Diabetes mellitus type I. None. RADIATION DOSE: 9.39 CTDI (mGy) ; Combined studies COMPARISON: No prior exams available for comparison. TECHNIQUE: Volumetric scanning was performed using a multirow detector CT scanner during bolus infus ion of 50 ml Visipaque 320 (iodixanol) nonionic water-soluble contrast as a cumulative dose for mult iple exams. The data was postprocessed with a variety of visualization algorithms including full-vo lume maximum intensity projection, multiplanar sliding thin-slab reformation, curved-planar reformati on, and surface-rendering techniques. Using automated exposure control and adjustment of the mA and/ or kV according to patient size, radiation dose was kept as low as reasonably achievable to obtain op timal diagnostic quality images. Elevated flow velocities and ICA/CCA ratios have been found to correlate with increased degrees of ve ssel stenosis, calculated as percentage of diameter relative to a normal segment of distal ICA/CCA. FINDINGS: Aortic Arch: Truncus arch anatomy. Widely patent arch vessels. Right Carotid: Mild eccentric stenosis involving the proximal right ICA about a centimeter above the bifurcation with roughly 50% luminal narrowing. Beyond this, the ICA regains normal caliber and is w idely patent to the skull base. Left Carotid: Slight eccentric soft and calcific plaquing involving the bulb and ICA origin without significant associated stenotic narrowing. The remainder of the left ICA is widely patent the skull b ase. Vertebrals: Patent bilaterally, left side slightly dominant. No stenotic lesions. CONCLUSION: 50% proximal right ICA stenosis. Electronically signed by: Tony Cutler MD 04/05/2018 11:40 AM EDT
--- NOTE | 2018-04-05 13:29 | HHI.PR ---
Subjective Remarks Follow up syncopal episode vs TIA. Patient has no complaints at this time. Denies chest pain, dyspnea, lightheadedness. Objective Vitals Vital Signs Date Time Temp Pulse Resp B/P (MAP) Pulse Ox O2 Delivery O2 Flow Rate FiO2 04/05/18 11:55 98.2 74 20 148/65 (92) 96 04/05/18 08:24 97.9 80 20 169/74 (105) 96 04/05/18 08:04 74 04/05/18 04:43 98.1 62 17 163/71 (101) 97 04/05/18 01:00 54 04/04/18 23:56 98.2 60 16 131/60 (83) 97 04/04/18 23:14 57 04/04/18 20:02 98.8 65 16 156/78 (104) 97 04/04/18 16:47 82 04/04/18 15:20 98.4 63 20 162/72 (102) 96 I/O 04/04/18 04/04/18 04/04/18 04/05/18 04/05/18 04/05/18 07:00 15:00 23:00 07:00 15:00 23:00 Intake Total 240 ml 950 ml 1952 ml Balance 240 ml 950 ml 1952 ml Intake Oral 240 ml IV Total 950 ml 1952 ml # Voids 2 4 # Bowel Movements 0 Result Diagram: 04/02/18 1350 04/04/18 1126 Imaging Last Impressions Neck CTA 04/05/18 1000 Signed Impressions: CONCLUSION: 50% proximal right ICA stenosis. Head CTA 04/05/18 1000 Signed Impressions: CONCLUSION: 1. Negative CTA Head. Head CT 04/03/18 0000 Signed Impressions: CONCLUSION: Unremarkable study. Chest X-Ray 04/02/18 1345 Signed Impressions: CONCLUSION: No acute cardiopulmonary abnormality is identified. Carotid Artery Ultrasound 04/02/18 0000 Signed Impressions: There is mild elevated velocity on the right without evidence for hemodynamical ly significant stenosis. On the left, the velocity and ratio are elevated corre sponding to an estimated 50-69% stenosis. There is antegrade flow in the bilate ral vertebral arteries. There is mild atherosclerotic plaquing bilaterally. CON CLUSION: 1. Right Internal Carotid Artery: No evidence for hemodynamically significant stenosis. 2. Left Internal Carotid Artery: No evidence for hemodynamically significant s tenosis. See above. Objective Remarks General: No acute distress. Heart: Regular rate and rhythm. 2/6 systolic murmur. Lungs: Clear to auscultation bilaterally. No wheezes, rales, or rhonchi. Breathing is nonlabored. Abdomen: Soft, nontender, nondistended. Extremities: No lower extremity edema. Psych: Alert and oriented. Neuro: Normal speech. No focal deficits noted. Procedures None Urinary Catheter: No Vascular Central Line Catheter: No A/P Problem List: (1) Syncope ICD Code: R55 - Syncope and collapse Status: Acute (2) Valvular heart disease ICD Code: I38 - Endocarditis, valve unspecified Status: Chronic (3) Diabetes mellitus type 2, controlled ICD Code: E11.9 - Type 2 diabetes mellitus without complications Status: Chronic (4) CKD (chronic kidney disease), stage III ICD Code: N18.3 - Chronic kidney disease, stage 3 (moderate) Status: Chronic (5) TIA (transient ischemic attack) ICD Code: G45.9 - Transient cerebral ischemic attack, unspecified Assessment and Plan 1. Syncope versus TIA: Patient has aortic stenosis, which is confirmed by echocardiogram. Patient's symptoms have resolved. He has not had any further episodes since arriving at the hospital. Head CT is negative. Appreciate neurology recommendations. He initially declined further workup here, but is now agreeable. Consult cardiology. 2. Coronary artery disease: Continue Plavix. No chest pain. 3. Hypertension: Continue amlodipine. 4. Acute kidney injury superimposed on chronic kidney disease stage III: Creatinine improving. Avoid nephrotoxins. 5. Diabetes mellitus: Continue glipizide. Monitor Accu-Cheks and cover with sliding scale insulin. 6. DVT prophylaxis: Heparin. 7. Carotid artery stenosis: Carotid artery ultrasound shows 50-69% stenosis. Appreciate vascular surgery recommendations. The patient was initially resistant to further workup being done here, but is now agreeable. CTA shows 50 % stenosis of the right internal carotid artery. Discharge Planning Pending further workup and clearance by vascular surgery, neurology, cardiology. Problem Qualifiers (1) Syncope: Qualified Codes: R55 - Syncope and collapse (2) Diabetes mellitus type 2, controlled: Trino Dye MD Apr 05, 2018 13:29
--- NOTE | 2018-04-05 13:47 | MG ---
cc: Salvatore Issa MD, PhD DATE OF STUDY: 04/05/2018 EEG TEST NUMBER: [id number] TECHNIQUE: A 17-channel EEG. DESCRIPTION: The background rhythm reveals a symmetrical alpha rhythm with a frequency of 8-9 Hz. Amplitude is 20-30 microvolts. No lateralizing features are identified and no epileptiform features are identified. There is some muscle artifact present. Photic stimulation is performed with a normal driving response. INTERPRETATION: This is a normal EEG. Salvatore Issa MD, PhD ROCCO/SB , 01:37 PM , 01:45 PM
--- NOTE | 2018-04-05 16:42 | MB ---
cc: Alli Holman DO DATE: 04/05/2018 REASON FOR CONSULTATION: Syncope. HISTORY OF PRESENT ILLNESS: Doug Easton is a pleasant 78-year-old male who sees Dr. Blackwell in [place]. He is down visiting from [place]. He is down vacationing and family was over and they went to the [facility]. He had a normal breakfast and then he [place] They went out to the [facility] and then back. During this, he states that it was extremely hot, but he had no chest pain, shortness of breath or palpitations. He then sat on the chair waiting for his son to come home with the family from the [facility] and he had a witnessed passing out spell. He states that during this, he had no chest pain, shortness of breath or palpitations. He just felt like he got hot and sweaty. Overall, he felt like he was relatively hydrated throughout the day before the episode, although when he came in, his creatinine was noted to be elevated to 1.92 and is now down to 1.39. During the episode, he slumped down in the chair. There was no seizure-like activity noted and he had no loss of his bowel or bladder. He came to and was a little off, but then felt all right. He was admitted to the hospital and he has been rehydrated, up and walking with no problems. He was found to have moderate stenosis of his internal carotid of 50-70% was seen by vascular surgery. He also had an echocardiogram done, which showed moderate aortic stenosis and per the patient, this is where he has been recently. PAST MEDICAL HISTORY: 1. Known moderate aortic stenosis. 2. Coronary artery disease. 3. Peripheral artery disease with right internal carotid artery stenosis, as well as previous stenting of his lower extremity. 4. Hyperlipidemia. 5. Diabetes mellitus type 2. 6. Chronic kidney disease, stage III. 7. Hypertension. PAST SURGICAL HISTORY: 1. Previous cardiac catheterization (patient is unsure of exactly when this was), but per the patient had a total occlusion of his RCA with collaterals formed and what appears to be a 50% lesion in his left circumflex and stenting of his LAD with 2 stents. 2. Bilateral lower extremity angiogram and stenting of his right lower extremity, per the patient. ALLERGIES: IODINE. MEDICATIONS: 1. Plavix 75 mg daily. 2. Lipitor 80 mg every night. 3. Hydralazine 25 mg b.i.d. 4. Toprol-XL 25 mg daily. 5. Norvasc 10 mg daily. 6. Losartan/hydrochlorothiazide 100/12.5 daily. 7. Glipizide 10 mg in the morning, 5 mg at night. FAMILY HISTORY: Denies premature coronary artery disease or sudden cardiac within the family. SOCIAL HISTORY: Denies tobacco, alcohol or drug abuse. REVIEW OF SYSTEMS: Fourteen systems were reviewed including osteopathic, with pertinent positive and negatives above, otherwise negative. PHYSICAL EXAMINATION: VITAL SIGNS: Temperature 98.2, heart rate 74, blood pressure 148/65, respirations 20, pulse oximetry 96% on room air. GENERAL: The patient appears well, in no acute distress. Alert, awake and oriented x 3. HEENT: Extraocular muscles intact. Mucous membranes are moist. NECK: Supple. No JVD at 45 degrees. No carotid bruits heard bilaterally. Carotid upstroke is brisk in nature. HEART: Regular rate and rhythm. Positive first and second heart sounds with a mid to late peaking crescendo-decrescendo murmur to the right sternal border. LUNGS: Clear to auscultation bilaterally. No wheezes, rales, or rhonchi. ABDOMEN: Soft, nontender, and nondistended. No organomegaly noted. EXTREMITIES: Show no clubbing, cyanosis, or edema. Femoral distal pulses intact bilaterally. NEUROLOGIC: No focal deficits. SKIN: Warm, dry, and intact. OSTEOPATHIC: No kyphoscoliosis, lordosis, or paraspinal tender points. LABORATORY DATA: Hemoglobin 13.8, hematocrit 40.3, platelets 201. Potassium 3.8, BUN 24, creatinine 1.39. Troponin negative x 2. TSH 1.16. Electrocardiogram (04/02/2018 at 12:46): Sinus rhythm with sinus arrhythmia, LVH with secondary ST-T wave changes, possible left atrial enlargement. Echocardiogram (04/03/2018): Ejection fraction of 60% to 65%, mild mitral regurgitation, trace aortic valve regurgitation, moderate aortic valve stenosis (peak velocity 2.96, peak gradient 35, mean gradient 23, aortic valve area of 1.2. IMPRESSION: 1. Syncopal episode, more likely due to dehydration and vasovagal. 2. Moderate aortic stenosis by echocardiogram (peak gradient 35, mean gradient 23, aortic valve area 1.2). 3. Peripheral artery disease with right internal carotid artery stenosis of 50% and previous lower extremity stenting of his right leg. 4. Coronary artery disease with previous stenting of his left anterior descending. 5. Hypertension. 6. Acute kidney injury on chronic kidney disease, stage III. 7. Diabetes mellitus. RECOMMENDATIONS: 1. Mr. Easton presented with a syncopal episode, which is most likely due to dehydration as well as a possible vasovagal due to the overall hot temperatures. 2. He is on losartan/hydrochlorothiazide which may have further potentiated this, specifically if he was not totally hydrated. Overall, he had acute kidney injury on chronic kidney disease, but since then has been rehydrated and return of his normal renal function. 3. He does have moderate aortic stenosis, which appears to be chronic and I do not believe that overall this potentiated his syncopal episode. If he did get significantly dehydrated, this possibly did not help during his syncopal episode. 4. As far as his aortic stenosis goes, this can be followed by his ethylbenzene cracking supervisor, Dr. Blackwell, in the outpatient setting. He will continue on his current medical therapies. 5. No further cardiovascular workup at this time. He will followup with Dr. Blackwell in the next few weeks. Thank you for allowing me to see Doug Easton. If there are any questions, please do not hesitate to call. Alli Holman DO VGP/KD , 03:46 PM , 04:40 PM
--- NOTE | 2018-04-05 17:41 | HHI.DCPOC ---
Discharge Care Plan Diagnosis: (1) Hypertension (2) Aortic stenosis (3) Coronary artery disease (4) ADRIENNE (acute kidney injury) (5) Carotid artery stenosis (6) Syncope (7) CKD (chronic kidney disease), stage III (8) Diabetes mellitus type 2, controlled Goals to Promote Your Health * To prevent worsening of your condition and complications * To maintain your health at the optimal level Directions to Meet Your Goals NO DRIVING UNTIL CLEARED BY YOUR DUPLICATING MACHINE OPERATOR Take your medications as prescribed Follow your dietary instruction Follow activity as directed Keep your appointments as scheduled Take your immunizations and boosters as scheduled If your symptoms worsen call your PCP, if no PCP go to Urgent Care Center or Emergency Room Smoking is Dangerous to Your Health. Avoid second hand smoke Call the 24-hour hour crisis hotline for domestic abuse at Margie Trevizo Apr 05, 2018 17:41
--- NOTE | 2018-04-06 13:55 | HHI.DS ---
Discharge Summary Admission Date Apr 02, 2018 at 15:19 Discharge Date: Apr 05, 2018 Admitting Diagnosis syncope (1) Syncope ICD Code: R55 - Syncope and collapse Status: Acute (2) Valvular heart disease ICD Code: I38 - Endocarditis, valve unspecified Status: Chronic (3) TIA (transient ischemic attack) ICD Code: G45.9 - Transient cerebral ischemic attack, unspecified (4) Carotid artery stenosis ICD Code: I65.29 - Occlusion and stenosis of unspecified carotid artery (5) Aortic stenosis ICD Code: I35.0 - Nonrheumatic aortic (valve) stenosis (6) ADRIENNE (acute kidney injury) ICD Code: N17.9 - Acute kidney failure, unspecified (7) Hypertension ICD Code: I10 - Essential (primary) hypertension (8) CKD (chronic kidney disease), stage III ICD Code: N18.3 - Chronic kidney disease, stage 3 (moderate) Status: Chronic (9) Diabetes mellitus type 2, controlled ICD Code: E11.9 - Type 2 diabetes mellitus without complications Status: Chronic Procedures None Brief History - From Admission 78-year-old white male with a history of coronary artery disease, peripheral vascular disease, hypertension, diabetes mellitus type 2, chronic kidney disease stage III, valvular heart disease is down in this area visiting from [place] when he returned walking on the beach and felt extremely hot sitting down in a chair and had a witnessed passing out spell by his family members. They describe the syncope episode lasting about a minute and period of confusion afterwards which lasted about 10 minutes. He had a similar shortly afterwards repeat syncope episode blood sugar at that time per family member was 97. And therefore EVAC was called. He did drink breakfast and drank water and was pretty well hydrated this morning. He states that this has never happened previously. He does see a professional bass fisherman and states that he is due for office visit in June and a repeat echo in May. He states that he does have a valvular heart disease and thinks it may be due to his aortic valve. His at bedside states that his physician did state that he may need future open heart surgery for the valve repair. CBC/BMP: 04/02/18 1350 04/04/18 1126 Significant Findings Laboratory Tests Test 04/04/18 11:26 Blood Urea Nitrogen 24 MG/DL (7-18) Creatinine 1.39 MG/DL (0.60-1.30) Random Glucose 144 MG/DL (74-106) Estimat Glomerular Filtration Rate 50 ML/MIN (>89) Imaging Last Impressions Neck CTA 04/05/18 1000 Signed Impressions: CONCLUSION: 50% proximal right ICA stenosis. Head CTA 04/05/18 1000 Signed Impressions: CONCLUSION: 1. Negative CTA Head. Head CT 04/03/18 0000 Signed Impressions: CONCLUSION: Unremarkable study. Chest X-Ray 04/02/18 1345 Signed Impressions: CONCLUSION: No acute cardiopulmonary abnormality is identified. Carotid Artery Ultrasound 04/02/18 0000 Signed Impressions: There is mild elevated velocity on the right without evidence for hemodynamical ly significant stenosis. On the left, the velocity and ratio are elevated corre sponding to an estimated 50-69% stenosis. There is antegrade flow in the bilate ral vertebral arteries. There is mild atherosclerotic plaquing bilaterally. CON CLUSION: 1. Right Internal Carotid Artery: No evidence for hemodynamically significant stenosis. 2. Left Internal Carotid Artery: No evidence for hemodynamically significant s tenosis. See above. PE at Discharge General: No acute distress. Heart: Regular rate and rhythm. 2/6 systolic murmur. Lungs: Clear to auscultation bilaterally. No wheezes, rales, or rhonchi. Breathing is nonlabored. Abdomen: Soft, nontender, nondistended. Extremities: No lower extremity edema. Psych: Alert and oriented. Neuro: Normal speech. No focal deficits noted. Pt update on day of discharge Follow up syncopal episode vs TIA. Patient has no complaints at this time. Denies chest pain, dyspnea, lightheadedness. Discussed with nursing staff, no acute issues noted. Hospital Course Patient admitted with syncopal episode with etiology of heat syncope, vasovagal , orthostatic vs cardiac arrhythmia. Increased creatinine and BUN ratio was suggestive of dehydration. His symptoms resolved prior to admission and he did not have any recurrence during his hospitalization. Head CT was unremarkable. 2D echocardiogram ordered revealing EF 60-65% and moderate aortic valve stenosis. Carotid US revealed 50-69% stenosis. Neck CTA revealed 50% proximal right ICA stenosis. Head CTA was negative. EEG was normal. Orthostatics were negative. His ADRIENNE on CKD responded well to IVF repletion. He was seen in consultation by Cardiology, Vascular surgery and Neurology both of which cleared him for discharge to home to follow up with his professional bass fisherman in [place]. Patient was cleared for discharge in stable condition. Patient was instructed not to drive until cleared by his professional bass fisherman Dr. Blackwell. Pt Condition on Discharge: Stable Discharge Disposition: Discharge Home Discharge Time: > 30 minutes Discharge Instructions DIET: Follow Instructions for: Heart Healthy Diet, Diabetic Diet Activities you can perform: Regular-No Restrictions, See Additionl Instruction (NO DRIVING UNTIL CLEARED BY THEOLOGY TEACHER) Activities to Avoid: Driving (NO DRIVING UNTIL CLEARED BY THEOLOGY TEACHER) Other Activity Instructions: No driving until cleared by your professional bass fisherman Follow up Referrals: Cardiology - 1 Week PCP Follow-up - 2-3 Days New Orders: BASIC METABOLIC PROF - 2-3 Days Continued Medications: Amlodipine (Amlodipine) 10 Mg Tab 10 MG PO DAILY for Blood Pressure Management, #30 TAB 0 Refills Atorvastatin (Atorvastatin) 80 Mg Tab 80 MG PO HS for Cholesterol Management, #30 TAB 0 Refills Clopidogrel (Clopidogrel) 75 Mg Tab 75 MG PO DAILY for Blood Clot Prevention, #30 TAB 0 Refills Glipizide (Glipizide) 10 Mg Tab 10 MG PO DAILYAC for Blood Sugar Management, #30 TAB 0 Refills Take 30 minutes before a meal Glipizide (Glipizide) 5 Mg Tab 5 MG PO AC DINNER for Blood Sugar Management, #30 TAB 0 Refills Take 30 minutes before a meal Hydralazine HCl (Hydralazine HCl) 25 Mg Tablet 25 MG PO BID for Blood Pressure Management, #60 TAB 0 Refills Losartan-Hydrochlorothiazide (Losartan-Hydrochlorothiazide) 100-12.5 Mg Tab 1 TAB PO DAILY for Blood Pressure Management, #30 TAB 0 Refills Metoprolol Succinate ER 24 HR (Metoprolol Succinate ER 24 HR) 25 Mg Tab 25 MG PO DAILY, #30 TAB 0 Refills Margie Trevizo Apr 06, 2018 13:55
== END 2018-04-05 18:01 | disposition home or self-care (01) ==
LOC: NEPE 13:41 → NEDA 15:19 → NEPHCDU 16:16
PROVIDERS: ADMIT Internal Medicine; ATTEND Internal Medicine
DX: T67.1XXA Heat syncope, initial encounter (principal); I38 Endocarditis, valve unspecified; E11.22 Type 2 diabetes mellitus with diabetic chronic kidney disease; N18.3 Chronic kidney disease, stage 3 (moderate); I25.10 Atherosclerotic heart disease of native coronary artery without angina pectoris; E11.51 Type 2 diabetes mellitus with diabetic peripheral angiopathy without gangrene; I12.9 Hypertensive chronic kidney disease with stage 1 through stage 4 chronic kidney disease, or unspecified chronic kidney disease; E78.5 Hyperlipidemia, unspecified; R94.31 Abnormal electrocardiogram [ECG] [EKG]; I35.0 Nonrheumatic aortic (valve) stenosis; N17.9 Acute kidney failure, unspecified; I65.23 Occlusion and stenosis of bilateral carotid arteries; R61 Generalized hyperhidrosis; Z79.02 Long term (current) use of antithrombotics/antiplatelets; Z79.899 Other long term (current) drug therapy; Z95.5 Presence of coronary angioplasty implant and graft; X30.XXXA Exposure to excessive natural heat, initial encounter
CPT/HCPCS: 70450; 70496; 70498; 71045; 80048; 80053; 82550; 82607; 82948; 83735; 83880; 84443; 84484; 85025; 85610; 85730; 93005; 93306; 93880; 95819; 96360; 96361; 96372; 99285; G0378; J1644; J7030; J7040; J7512; Q0163; Q9967